=== PATIENT | male | born 1940 | race Caucasian/White ===

== ENCOUNTER 2017-11-22 15:51 | Emergency (ER) | payer MEDICARE, SELFPAY ==
[2017-11-22 15:52] VITALS: BP 127/79; PULSE 63; RESP 16; TEMP 37; O2SAT 97; BMI 26.4
--- NOTE | 2017-11-22 15:55 | RAD_ITS ---
STUDY: X-RAY - LEFT ANKLE REASON FOR EXAM: Male, 77 years old. Pain. Injury. Swelling TECHNIQUE: 3 view(s) of the ankle. COMPARISON: None. FINDINGS: Normal visualized distal tibia and fibula. Normal medial and lateral malleoli. Normal tibiotalar articulation and ankle mortise. Normal visualized talus. Plantar spur of the calcaneus. The visualized subtalar, talonavicular, calcaneocuboid and tarsal articulations are normal. There is no demonstrated fracture. Lateral soft tissue swelling. RAD/Ankle min 3 Views IMPRESSION: No fracture. Soft tissue swelling. Electronically Signed: Nitin Gibbs MD at 16:46 EDT , Service support ,
--- NOTE | 2017-11-22 17:05 | ED.DCSUM_ITS ---
- ER Visit Summary Date of Service: 11/22/17 Chief Complaint: Left ankle pain History of Present Illness: The patient is a 77 M who rolled his left ankle when he was jumping down from a tractor today. He states he can weight-bear on it but has increased pain. He has been using crutches. He denies paresthesias. He did not fall to the ground have any other injury. Physical Examination: Vital signs unremarkable. Patient is sitting in the butt chair. He is in no acute distress. Heart is regular rate and rhythm. Lung sounds are clear. Lower external examination was edema diffusely throughout the left ankle, lateral greater than medial. There is diffuse tenderness. There is no tenderness over the foot itself. There is no tenderness at the proximal fibula or knee. He has strong distal pulses and normal sensation. Test Results: Left ankle x-rays were obtained per nursing protocol. There is no evidence of fracture. Soft tissue swelling is noted. Emergency Department Course and Treatment: Patient declined anything for pain here. He will be placed in a stirrup splint and will continue to use his crutches. He has been seen by Dr. Angeles in the past and will be referred to him for follow-up if not improving. Treatment Plan: [] Disposition: Discharge Impression: Left ankle sprain This note was generated with [employer] dictation software. It may contain incorrect words, spelling, and punctuation that were not noted in review of the chart prior to signing ED Disposition - Plan for ED Patient: Chief Complaint: Lower Extremity Injury Referrals: Tramaine Rodriguez MD [Primary Care Provider] -
--- NOTE | 2017-11-22 17:05 | ED.DEP ---
ED Disposition - Plan for ED Patient: Disposition: Home or Assisted Living Chief Complaint: Lower Extremity Injury Instructions: ED Sprain Ankle W X Ray Referrals: Kory Angeles DO [STAFF PHYSICIAN] - 1 Week if not improving
== END 2017-11-22 18:23 | disposition home or self-care (01) ==
PROVIDERS: Emergency Provider Emergency Medicine; Family Provider Family Medicine; PCP Family Medicine
DX: S93.402A Sprain of unspecified ligament of left ankle, initial encounter (principal); X50.1XXA Overexertion from prolonged static or awkward postures, initial encounter; Y93.39 Activity, other involving climbing, rappelling and jumping off; Y92.9 Unspecified place or not applicable; I10 Essential (primary) hypertension; E78.00 Pure hypercholesterolemia, unspecified; Z87.891 Personal history of nicotine dependence
CPT/HCPCS: 73610; 99282

== ENCOUNTER 2020-02-25 13:55 | Emergency (ER) | payer MEDICARE, SELFPAY ==
[2020-02-25 13:56] VITALS: BP 130/72; PULSE 41; RESP 20; TEMP 36.2; O2SAT 100; BMI 26.0
--- NOTE | 2020-02-25 14:17 | EKG12_ITS ---
Test Reason : ANGELA Blood Pressure : / mmHG Vent. Rate : 069 BPM Atrial Rate : 061 BPM P-R Int : 182 ms QRS Dur : 098 ms QT Int : 454 ms P-R-T Axes : 075 018 -50 degrees QTc Int : 486 ms Sinus rhythm with frequent and consecutive Premature ventricular complexes Nonspecific ST and T wave abnormality Prolonged QT Abnormal ECG Confirmed by VASYL CRUZ, NGHIA ([id number]), electronic news gathering editor LAMBERT DEXTER ([id number]) on 02/27/2020 8:45:46 AM Referred By: DELFIN Confirmed By:NGHIA FALLON MD
--- NOTE | 2020-02-25 14:17 | ED.VIS.GEN ---
History of Present Illness Chief Complaint: General Illness Detail of Chief Complaint: Low heart rate Informant: Patient Onset: Weeks - 2, plus or minus Quality: Low heart rate. No symptoms. Narrative: Patient states he routinely checks his blood pressure, and has done so for a long time. In the last couple weeks he has noticed that the machine is telling him that his heart rate is low. His blood pressure has been fine. He has had no acute symptoms in the last couple weeks. No dizziness, chest pain, shortness of breath even with exertion. No recent illness or injury. He has had no recent medication changes, he takes atorvastatin, lisinopril, baby aspirin and no other medicines. - Past Medical History (1) Hypertension Status: Chronic (2) Hyperlipidemia Status: Chronic (3) Prostate cancer Status: Resolved Past Medical History - Allergies and Home Meds Allergies/Adverse Reactions: Allergies No Known Allergies Allergy (Verified 11/22/17 15:53) Primary Care Physician: Feliz Plunkett MD [STAFF PHYSICIAN] - As soon as possible (call for appt) Tramaine Rodriguez MD [Primary Care Provider] - Smoking Status: Former smoker Review of Systems General: Denies: Chills, Fever, Sweats Eyes: Denies: Visual changes - bilaterally, Diplopia ENT: Denies: Rhinorrhea, Sore throat Cardiovascular: Denies: Chest pain, Palpitations Respiratory: Denies: Dyspnea, Cough, Dyspnea on exertion Gastrointestinal: Denies: Abdominal pain, Nausea, Vomiting, Diarrhea, Melena, Hematochezia Genitourinary: Denies: Dysuria, Hematuria, Frequency Musculoskeletal: Denies: Back pain, Swelling, Extremity Pain Skin: Denies: Rash, Wounds Neurological: Denies: Headache, Weakness, Numbness Physical Exam Vital Signs/Narrative: Vital Signs Temp Pulse Resp BP Pulse Ox 02/25/20 13:56 97.1 F L 41 L 20 H 130/72 H 100 Inital Vital Signs reviewed: Yes General: Well nourished, Well developed, No Acute Distress Head: Normocephalic, Atraumatic Eyes: Perrl, EOMI ENT: Moist mucous membranes, No rhinorrhea Neck: Supple, Nontender, No JVD Cardiovascular: No murmurs, Normal S1, Normal S2, Irregular, Bradycardia Respiratory: No distress, CTA bilaterally, Chest nontender Abdomen: Soft, Nontender, Nondistended, Normal bowel sounds Back: Nontender, Normal Inspection Extremities: Nontender, No edema Skin: Normal color, No rash Neurological: Alert, Oriented x3, Cranial nerves II-XII grossly intact, Normal Strength, Normal Sensation Psychological: Normal affect, Normal Mood Diagnostic/Tx/Re-eval Laboratory Tests 02/25/20 02/25/20 Range/Units 14:15 14:15 WBC 6.6 (4.4-11.0) K/mm3 RBC 4.48 L (4.6-6.2) M/mm3 Hgb 13.7 (13.0-16.5) g/dL Hct 42.4 (40-54) % MCV 94.6 H (80-94) fL MCH 30.6 (27.0-32.0) pg MCHC 32.3 (32-36) g/dL RDW Std Deviation 44.3 H (35.1-43.9) fl RDW Coeff of Trini 12.8 (11.6-14.6) % Plt Count 213 (150-450) K/mm3 MPV 10.2 (6.2-12.0) fl Immature Gran % (Auto) 0.300 (0.0-0.9) % Neut % (Auto) 59.4 (47-70) % Lymph % (Auto) 22.6 (19-41) % Norton % (Auto) 12.1 H (0-10) % Eos % (Auto) 5.0 (0-5) % Baso % (Auto) 0.6 (0-1) % Absolute Neuts (auto) 3.9 (2.0-7.7) X10^3/uL Absolute Lymphs (auto) 1.50 (0.83-4.51) X10^3/uL Nucleated RBC % 0 (0-5) % Sodium 141 (136-145) mmol/L Potassium 4.2 (3.5-5.1) mmol/L Chloride 106 (98-107) mmol/L Carbon Dioxide 29.0 (21.0-32.0) mmol/L Anion Gap 6 (5-15) BUN 23 H (7-18) mg/dL Creatinine 1.46 H (0.70-1.30) mg/dL Estim Creat Clear Calc 42.26 ml/min Est GFR (MDRD) Af Amer 60 (>60) mL/min Est GFR (MDRD) Non-Af 49 L (>60) mL/min BUN/Creatinine Ratio 15.8 (10-20) RATIO Glucose 102 (74-106) mg/dL Calcium 8.7 (8.5-10.1) mg/dL - Rhythm Strip Rhythm Strip: Sinus Rhythm Rate: 65 - Pulse is for the most part 30-40 and at times 60 Ectopy: PVC(s) - EKG Initial EKG Interpretation: Sinus Rhythm - With ventricular bigeminy for heart, otherwise unremarkable, No Acute Injury Pattern - Medical Decision Making Reviewed several strips, patient has an atrial rate in the 60s, his pulse is often in the 30s, he has PACs, PVCs that are multifocal, however I cannot find anything that represents Mobitz 2 or complete heart block. Discussed with Dr. Plunkett with cardiology, since the patient is asymptomatic he would recommend discharging him home with a 48-hour Holter monitor to go to him for review and close outpatient follow-up. Patient is comfortable with that plan. ED Disposition - Plan for ED Patient: Disposition: Home or Assisted Living Diagnosis: Bradycardia Instructions: ED Bradycardia, ED Holter Monitor Referrals: Tramaine Rodriguez MD [Primary Care Provider] - Feliz Plunkett MD [STAFF PHYSICIAN] - 5-7 Days (call for appt)
[2020-02-25 14:20] VITALS: BP 135/89; PULSE 67; RESP 20; O2SAT 98
[2020-02-25 14:25] LABS: Absolute Neutrophil Count 3.9 X10^3/uL (2.0-7.7); Basophil# 0.04 X10^3/uL; Basophil% 0.6 % (0-1); Eosinophil# 0.33 X10^3/uL; Hematocrit 42.4 % (40-54); Hemoglobin 13.7 g/dL (13.0-16.5); Lymphocyte % 22.6 % (19-41); Mean Corp Hgb Conc 32.3 g/dL (32-36); Mean Corpuscular Hgb 30.6 pg (27.0-32.0); Mean Corpuscular Volume 94.6 fL (80-94); Mean Platelet Vol. 10.2 fl (6.2-12.0); Monocyte% 12.1 % (0-10); NRBC Flagged by Analyzer 0 % (0-5); Neutrophil # 3.94 X10^3/uL (2.7-7.7); Neutrophil % 59.4 % (47-70); Platelet Count 213 K/mm3 (150-450); RBC Distribution Width CV 12.8 % (11.6-14.6); RBC Distribution Width SD 44.3 fl (35.1-43.9); Red Blood Count 4.48 M/mm3 (4.6-6.2); White Blood Count 6.6 K/mm3 (4.4-11.0)
[2020-02-25 14:40] LABS: Anion Gap 6 (5-15); BUN 23 mg/dL (7-18); BUN/Creat Ratio 15.8 RATIO (10-20); Calcium,Total 8.7 mg/dL (8.5-10.1); Chloride 106 mmol/L (98-107); Creatinine, Serum 1.46 mg/dL (0.70-1.30); EST Glomerular Filtration Rate 49 mL/min (>60); Est Glom Filt Rate - Afr Amer 60 mL/min (>60); Estimated Creatinine Clearance 42.26 ml/min; Glucose 102 mg/dL (74-106); Potassium 4.2 mmol/L (3.5-5.1); Sodium Level 141 mmol/L (136-145)
[2020-02-25 15:00] VITALS: BP 124/71; PULSE 55; RESP 20; O2SAT 95
[2020-02-25 16:23] VITALS: BP 124/77; PULSE 55; RESP 19; O2SAT 96
[2020-02-25 16:42] VITALS: BP 125/82; PULSE 62; RESP 16; O2SAT 99
== END 2020-02-25 17:31 | disposition home or self-care (01) ==
PROVIDERS: Emergency Provider Emergency Medicine; PCP Family Medicine
DX: R00.1 Bradycardia, unspecified (principal); E78.5 Hyperlipidemia, unspecified; I10 Essential (primary) hypertension
CPT/HCPCS: 80048; 85025; 93005; 93225; 99284; A4216

== ENCOUNTER → 2020-02-25 16:43 | Outpatient (CLI) | payer MEDICARE, SELFPAY ==
[2020-02-25 13:56] VITALS: BMI 26.0
== END ==
PROVIDERS: PCP Family Medicine; Visit Provider Emergency Medicine
DX: Z00.00 Encounter for general adult medical examination without abnormal findings (principal)

== ENCOUNTER → 2020-03-05 11:47 | Outpatient (CLI) | payer MEDICARE, SELFPAY ==
[2020-03-05 10:59] VITALS: BMI 26.0
[2020-03-05 14:19] LABS: Thyroid Stim Hormone (TSH) 0.56 uIU/mL (0.358-3.74)
== END ==
PROVIDERS: PCP Family Medicine; Visit Provider Internal Medicine Cardiovascular Disease
DX: R53.83 Other fatigue (principal)
CPT/HCPCS: 36415; 84443

== ENCOUNTER → 2020-03-12 06:59 | Outpatient (CLI) | payer MEDICARE, SELFPAY ==
[2020-03-05 10:59] VITALS: BMI 26.0
--- NOTE | 2020-03-12 07:05 | ECHOD_ITS ---
Reason For Study: ARRHYTHMIA Procedure This was a 2D Doppler, Color Flow transthoracic echocardiogram. Exam performed in department. Left Ventricle Normal LV size. The estimated ejection fraction is 30 %. Stage 1 diastolic dysfunction. There is mild to moderate global hypokinesis of the left ventricle. Right Ventricle Normal RV size. Normal systolic function. Atria Normal left atrium. Normal right atrium. Mitral Valve Normal mitral valve. Mild (1+) eccentric mitral valve insufficiency. Tricuspid Valve Normal tricuspid valve. Mild (1+) tricuspid valve insufficiency. Pulmonary artery systolic pressure is 38 mmHg. Aortic Valve Trisinus/trileaflet aortic valve. Mild (1+) eccentric aortic valve insufficiency. Pulmonic Valve Normal pulmonic valve. Great Vessels Normal aortic root. The pulmonary artery is normal size. Normal inferior vena cava. Pericardium/Pleural No pericardial effusion. MMode/2D Measurements & Calculations LVIDd: 6.2 cm IVSd: 0.98 cm Ao root diam: 3.4 cm LVIDs: 4.7 cm LVPWd: 0.97 cm RVDd: 3.8 cm FS: 24.1 % LAV(MOD-bp): 71.0 ml LVAd ap4: 42.1 cm2 SV(MOD-sp4): 66.7 ml LAV(MOD-bp) Indexed: 34.7 ml/m2 EDV(MOD-sp4): 160.6 ml LAV(MOD-sp2): 73.8 ml EDV(sp4-el): 167.7 ml LAV(MOD-sp4): 52.1 ml LVAs ap4: 30.4 cm2 ESV(MOD-sp4): 93.9 ml ESV(sp4-el): 96.1 ml EF(MOD-sp4): 41.5 % EF(sp4-el): 42.7 % SV(sp4-el): 71.6 ml LA A4 area: 17.8 cm2 LA dimension(2D): 4.6 cm RA A4 area: 16.1 cm2 Time Measurements MV dec time: 0.28 sec Doppler Measurements & Calculations MV E max peewee: 38.3 cm/sec Lat Peak E' Peewee: 3.9 cm/sec Med Peak E' Peewee: 3.6 cm/sec MV A max peewee: 69.6 cm/sec E/E' lat: 9.7 E/E' med: 10.6 MV E/A: 0.55 Ao V2 max: 126.5 cm/sec LV V1 max: 89.2 cm/sec PA V2 max: 105.7 cm/sec Ao max P.5 mmHg LV V1 max P.2 mmHg PI end-d peewee: 104.3 cm/sec TR max peewee: 288.8 cm/sec TR max P.4 mmHg Interpretation Summary The estimated ejection fraction is 30 %. There is mild to moderate global hypokinesis of the left ventricle. Normal LV size. Mild (1+) eccentric mitral valve insufficiency. Mild (1+) eccentric aortic valve insufficiency. Stage 1 diastolic dysfunction. Ordering Physician: Feliz Plunkett Referring Physician: DAVID JEAN BAPTISTE Performed By: Tayla Brown RDCS
--- NOTE | 2020-03-12 16:47 | STRESSREP ---
Stress Test Report Exercise myocardial perfusion stress test. 79-year-old male with a history of premature ventricular complexes. Stress protocol: Resting EKG demonstrates normal sinus rhythm with a rate of [address] depression noted in leads II, III and aVF V5 and V6. Occasional premature ventricular complexes noted. The patient exercised according to the regular Geovani protocol for a total duration of 6 minutes and 51 seconds. The maximum heart rate attained was 129 bpm which was 92% of max impacted heart rate the maximum workload was 8.3 metabolic equivalents. The patient maintained sinus rhythm throughout the recording. Frequent premature ventricular complexes were noted no runs of ventricular tachyarrhythmia were present. There were nonspecific EKG changes noted we did not meet the criteria for ischemia. The resting blood pressure was 132/84 with a peak blood pressure 172/70 mmHg. The test was terminated due to dyspnea present. Myocardial perfusion protocol. 11.4 mCi of technetium 99m sestamibi was injected at rest. The patient exercised according to regular Geovani protocol for 6 minutes and 51 seconds. At peak exercise 32.9 mCi of technetium 99m sestamibi was injected at rest. Stress and rest images were reconstructed and compared in the short axis vertical long horizontal long axis. Gated images were not obtained. Perfusion SPECT analysis: Review of the stress images demonstrate normal uptake of tracer noted in the anterior wall and septum. There is reduction of perfusion noted in the inferior wall. The resting images demonstrate mild improvement suggesting mild inferior ischemia. Conclusion: Exercise myocardial perfusion stress test with evidence of mid inferior ischemia at a moderate workload. Premature ventricular complexes noted.
== END ==
PROVIDERS: PCP Family Medicine; Referring Provider Internal Medicine Cardiovascular Disease; Visit Provider Internal Medicine Cardiovascular Disease
DX: R07.89 Other chest pain (principal); I49.49 Other premature depolarization
CPT/HCPCS: 78452; 93017; 93306; A9500; A4216

== ENCOUNTER 2020-03-19 06:42 | Day surgery (SDC) | payer MEDICARE, SELFPAY ==
[2020-03-05 10:59] VITALS: BMI 26.0
--- NOTE | 2020-03-17 10:10 | RAD_ITS ---
STUDY: X-RAY CHEST REASON FOR EXAM: Male, 79 years old. CHEST TIGHTNESS TECHNIQUE: PA and lateral views of the chest. COMPARISON: None. FINDINGS: There are areas of hyperinflation. Mild interstitial prominence. There is no focal parenchymal abnormality. There is no demonstrated pleural abnormality. Normal size heart. Normal mediastinum and dax. Normal visualized pulmonary arteries. Normal visualized aortic arch and descending thoracic aorta. There are diffuse degenerative changes of the visualized thoracic spine. Normal visualized ribs, clavicles, and shoulders. There is no demonstrated abnormality of the visualized soft tissue structures of the upper abdomen. RAD/Chest PA and Lateral IMPRESSION: Component of COPD suspected. No pulmonary edema, congestive heart failure or confluent pneumonia. Electronically Signed: Kamryn Donaldson MD at 6:21 EST , Service support ,
[2020-03-18 10:42] VITALS: BMI 26.0
--- NOTE | 2020-03-19 07:00 | HP_ITS ---
HPI HPI History of Present Illness Details: Pleasant 79-year-old man with no previous cardiac history who is being rather active but with a history of hypertension hyperlipidemia and obstructive sleep apnea. He says that his noticed 1 day that he looked rather ashen when he had come from outside when her been working out. He is always had a low pulse rate according to him. He was sent to the urgent care and was noted to have frequent premature complexes and he was asked to have this worked up. He has had no dizziness or diaphoresis no near syncope or syncope he has been compliant with all his medications. He did have a 48-hour Holter monitor which demonstrated an average heart rate of 63 bpm with a minimum of 38 bpm and a maximum 119 bpm. Frequent premature ventricular complexes were noted which were multifocal. This comprised 27% of the total QRS burden. He did have blood work done with normal electrolytes. His physical exam today demonstrates clear lung mcpherson regular rate and rhythm and no pedal edema his electrocardiogram from February 24 demonstrated sinus rhythm with a rate of 69 bpm with frequent ventricular ectopy in the pattern of bigeminy noted. No acute changes were present. Intake Vital Signs 03/05/20 Height 5 ft 11 in 03/05/20 Weight: 187 lb 03/05/20 BMI 26.0 03/05/20 BP 118/58 L 03/05/20 Respiration 16 03/05/20 Pulse 62 03/05/20 Pulse Oximetry (%) 98 Intake Visit Reasons: ER 02/24 for bradycardia Allergies No Known Allergies Allergy (Verified 03/05/20 08:49) Medications Aspirin [Aspirin EC] 81 mg PO DAILY 02/25/20 [History Confirmed 03/05/20] Atorvastatin Calcium [Lipitor] 10 mg PO DAILY 02/25/20 [History Confirmed 03/05/20] Lisinopril [Zestril] 40 mg PO DAILY 02/25/20 [History Confirmed 03/05/20] amiodarone 100 mg tablet 100 mg PO DAILY #90 tab 03/05/20 [Rx Confirmed 03/05/20] [facility] Medical History Essential hypertension (Chronic) Hyperlipidemia (Chronic) GERD (gastroesophageal reflux disease) (Chronic) Obstructive sleep apnea (Chronic) Prostate cancer (Resolved) Surgical History History of shoulder surgery (Resolved 2012) Family History Mother Hypertension Other Heart disease Social History (Updated 03/05/20 @ 11:[address] Feliz Plunkett MD) Smoking Status: Former smoker ROS Const Const: Positive for fatigue; negative for weakness, headache(s), frequent falls, difficulty sleeping or excessive sweating Eyes Eyes: Negative for loss of peripheral vision, transient loss of vision, blurry vision, double vision or tunnel vision ENT ENT: Negative for headache(s), dizziness, Nosebleed/epistaxis or balance problems Cardio Chest Pain: Yes (c/o left chest pressure at rest) Palpitations: No Edema: None Muscle aches with walking: None Additional Details: says after exerting himself he looks tired and [place] Resp Respiratory: Negative for SOB with activity, SOB at rest, SOB orthopnea\SOB lying down, Cough or paroxysmal nocturnal dyspnea Additional Details: uses cpap GI GI: Negative nausea, vomiting, heartburn or black,tarry stools : Negative for hematuria Musc Musc: Negative for muscle aches/ myalgia, muscle weakness, joint pain or balance problems Skin Skin: Negative non-healing lesions, rash or unusual bruising Neuro Neuro: Negative for dizziness, lightheadedness, near syncope, syncope, orthostatic symptoms, frequent falls, headache(s), weakness, blurry vision, double vision or lack of coordination Oscar Hematologic/Lymphatic: Negative for easy bleeding or easy bruising Endo Endo: Positive for fatigue; negative for excessive sweating or increased thirst/drinking Psych Psych: Negative for anxiety or depression Allergy Allergy/Immunology: Negative for hives, Negative for rash Cardiology Exam Const Appearance: cooperative, healthy appearing, no acute distress, well developed and well groomed Nutritional Appearance: average body habitus and well nourished Orientation: alert, awake and oriented x3 Head Head: normal to inspection, normocephalic and atraumatic Ears: hearing grossly normal bilaterally and external ears normal Nose: external nose normal, nares normal, nasal mucous membranes and turbinates normal, septum normal, no nasal discharge Face and Sinus: face symmetric Mouth: oral mucosae normal, tongue normal, oropharynx normal and moist mucous membranes Teeth and gingiva: dentition normal Throat: posterior oropharynx normal, tonsils normal and uvula midline Eyes General: appearance normal, both eyes and all related structures Eyelids: eyelids normal Conjunctivae: conjunctivae normal Pupils: PERRL, normal by confrontation and accommodation normal EOM: EOM intact bilaterally Neck Neck: normal visual inspection, trachea midline and no JVD JVD: +5 Carotids: normal carotid upstroke and bounding pulses Chest Chest inspection: normal inspection of the chest, symmetric chest movement and normal respiratory effort Auscultation: Bilateral: Clear to Auscultation Cardio Palpation: normal PMI Rate: regular rate Rhythm: regular rhythm Heart sounds: S1 normal, S2 normal and normal, physiologic split S2; negative rub, gallop or murmur GI GI: normal to inspection, soft, no hepatosplenomegaly and bowel sounds present Neuro General: alert, awake, oriented x3, gait normal, moves all extremities and no focal sensory deficit Skin Skin: no rashes or lesions noted Extremities Pulses: Normal: Right Femoral Pulse, Left Femoral Pulse, Right Dorsalis Pedis Pulse, Left Dorsalis Pedis Pulse, Right Posterior Tibial Pulse, Left Posterior Tibial Pulse, Right Radial Pulse, Left Radial Pulse Lower Extremity Edema: None: Bilateral Musculoskel Musculoskeletal: No joint tenderness Psych Psychological: normal affect Assessment & Plan 1. 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 The etiology of the above is not clear like us to obtain a thyroid test and also an echocardiogram. I would empirically like to put him on low-dose of amiodarone 100 mg a day and repeat his Holter monitor in approximately 6 weeks to see whether there is been any suppression of the above. Depending on those findings further recommendations will be made. Ischemia would also be excluded as well as his left ventricular function assessed. Depending on those results further recommendations will be made. Orders Orders: Cardiac Holter Monitor, Set-Up 6 Weeks Cardiac Holter Monitor/Day 6 Weeks Nuclear Stress Test - Treadmil Today 2. Essential hypertension I10 Plan His blood pressure appears to be under good control on the current medical therapy and I would not recommend that we make any changes. He will remain on the lisinopril at the same dose. 3. Chest pressure R07.89 Plan He has had some chest pressure occasionally not necessarily related to activity. I would like us to evaluate the above with stress testing. I have explained the above to him and his they understand and agree to proceed. Thank you for allowing me to participate in the care of your patient. Please don't hesitate to call if any issues arise. 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
--- NOTE | 2020-03-19 08:45 | CL.D_ITS ---
Patient Name: ANTHONY HAYDEN Study Date: 03/19/2020 Performing: Feliz Plunkett MD Ht: 70.86 inches 180 cm : 1940 Wt: 187.39 lbs 85 kg Age: 79 Gender: male BSA: 2.05 PROCEDURE(S) PERFORMED [id number] CLINICAL PROFILE AND INDICATIONS Indications: Cardiomyopathy, Cardiac Arrythmia, Dilated Idiopathic Cardiomyopathy Heart Failure: None Stress/Imaging Date: 03/12/2020Stress Test with SPECT MPI: Positive Intermediate Risk CAD Presentations: No Sxs, no angina. CONCLUSIONS Non obstructive coronary arteries Cardiomyopathy: Dilated idiopathic RECOMMENDATIONS Medical therapy DESCRIPTION OF PROCEDURE The patient arrived to the procedure lab. The risks and benefits of the procedure as well as a full d escription of our services here and current unavailability of surgical backup were fully explained to the patient and/or their significant other prior to the catheterization. The Timeout was completed, verifying the correct patient and procedure. The patient's procedural site was prepped and draped in the usual fashion. Local anesthetic was given subcutaneously to right radial region with Lidocaine 2% . Using a modified Seldinger technique, arterial access was obtained via the right radial artery, a 6 Fr sheath was inserted. Right Coronary Artery selective angiography was then performed in multiple v iews using a 5 Fr. 3.5 Larry catheter. Left Coronary Artery selective angiography was performed in mu ltiple views using a 5 Fr. JL3.5 catheter.The arterial sheath was pulled and a TR Band was applied fo r hemostasis CORONARY ANGIOGRAPHY DOMINANCE: Right Dominant LEFT HEART ASSESSMENT Left Ventricular Ejection Fraction: by Echo 30 % Global Hypokinesis - Moderate LEFT MAIN: Angiographically normal LEFT ANTERIOR DESCENDING ARTERY: Mild luminal irregularities less than 30% CIRCUMFLEX ARTERY: No significant disease noted RIGHT CORONARY ARTERY: Mild luminal irregularities COMPLICATIONS No Complications PROCEDURE MEDICATIONS Versed 1 mg IV Fentanyl 50 mcg IV Versed 1 mg IV Oxygen: 2 L/min via nasal cannula Heparin given IA 03/19/2020 08:09:17 SUMMARY OF HEMODYNAMIC DATA Time AIR REST ECG 07:01:17 AO 106/48 (66) SA 08:11:13 AO 113/58 (76) 08:13:37 Signed By Feliz Plunkett MD On 03/19/2020 08:44:29 Feliz Plunkett MD
== END 2020-03-19 10:30 | disposition home or self-care (01) ==
LOC: CLSP 06:43
PROVIDERS: PCP Family Medicine; Referring Provider Internal Medicine Cardiovascular Disease; Visit Provider Internal Medicine Cardiovascular Disease
DX: I42.0 Dilated cardiomyopathy (principal); I10 Essential (primary) hypertension; I49.3 Ventricular premature depolarization; G47.33 Obstructive sleep apnea (adult) (pediatric); E78.5 Hyperlipidemia, unspecified; K21.9 Gastro-esophageal reflux disease without esophagitis; Z79.02 Long term (current) use of antithrombotics/antiplatelets; Z79.82 Long term (current) use of aspirin; Z79.899 Other long term (current) drug therapy; Z87.891 Personal history of nicotine dependence; R07.89 Other chest pain
CPT/HCPCS: 71046; 93454; 99152; 99153; J7040; C1769; C1894; Q9967

== ENCOUNTER → 2020-05-12 09:29 | Outpatient (CLI) | payer MEDICARE, SELFPAY ==
[2020-05-07 11:57] VITALS: BMI 26.4
== END ==
PROVIDERS: PCP Family Medicine; Referring Provider Internal Medicine Cardiovascular Disease; Visit Provider Internal Medicine Cardiovascular Disease
DX: I49.49 Other premature depolarization (principal)
CPT/HCPCS: 93225; 93226

== ENCOUNTER 2021-10-29 21:18 | Emergency (ER) | payer MEDICARE, SELFPAY ==
[2021-10-29 21:19] VITALS: BP 130/95; PULSE 71; RESP 16; TEMP 37.5; O2SAT 99; BMI 26.4
--- NOTE | 2021-10-29 22:00 | RAD_ITS ---
INDICATION: cough EXAMINATION/TECHNIQUE: X-RAY - XR Chest 1 View COMPARISON: None. FINDINGS: LINES/DEVICES: None. LUNGS: Symmetric normal lung volumes. No airspace opacity or abnormal interstitial pattern. No nodule or mass. No pleural effusion or pneumothorax. MEDIASTINUM AND CARDIOVASCULAR STRUCTURES: Normal size and contour of the cardiomediastinal silhouette. No evidence of pulmonary vascular congestion. BONES AND SOFT TISSUES: No fracture or focal osseous lesion. RAD/Chest 1 View (Portable) IMPRESSION: 1. No radiographic evidence of acute cardiopulmonary disease. Electronically Signed: Kory Cisse DO at 22:41 EDT ,
--- NOTE | 2021-10-29 22:04 | EX.ED.DYSGE1 ---
HPI History of Present Illness Chief Complaint: General Illness Informant: patient and family Onset/Context/Timing Onset: Today Context: Gradual Onset Timing: Continuous Current Severity: Mild Maximum Severity: Mild Narrative Narrative: 80-year-old male tested positive for COVID on Tuesday. He started having a fever of 101.3 today. Nonproductive cough. No shortness of breath. He denies any nausea, vomiting or diarrhea. No hemoptysis. Is a past medical history of abnormal cardiac rhythm and renal insufficiency. No underlying lung disease. Prior similar symptoms: Yes Recent Illness/Hospitalization: No [facility], [facility] Medical History (Updated 10/29/21 @ 23:[address] Jose Hogue MD) Essential hypertension GERD (gastroesophageal reflux disease) Hyperlipidemia Multiple premature ventricular complexes Non-ischemic cardiomyopathy Nonsustained paroxysmal ventricular tachycardia Obstructive sleep apnea Prostate cancer Sinus bradycardia Home Medications aspirin 81 mg tablet,delayed release 81 mg PO DAILY 02/25/20 [History Last Taken 03/19/20] atorvastatin 10 mg tablet 10 mg PO DAILY 02/25/20 [History Last Taken Unknown] amiodarone 100 mg tablet 100 mg PO DAILY #90 tabs 05/12/20 [Rx Last Taken Unknown] carvedilol 3.125 mg tablet (Coreg) 3.125 mg PO BID #180 tabs 05/12/20 [Rx Last Taken Unknown] lisinopril 40 mg tablet 40 mg PO DAILY #90 tabs 05/12/20 [Rx Last Taken Unknown] Allergy/AdvReac Type Severity Reaction Status Date / Time No Known Allergies Allergy Verified 10/29/21 21:21 Family History Mother Hypertension Other Heart disease Surgical History History of left heart catheterization (03/19/20) History of shoulder surgery (2012) Social History Smoking Status: Former smoker ROS ROS ED ROS Narrative Cough and fever. Review of Systems ROS Unobtainable: Denies due to encephalopathy Constitutional Constitutional ED: Reports fever(s); Denies chills Eyes Eyes: Denies blurry vision ENT ENT ED: Denies ear pain Cardiovascular Cardiovascular: Denies chest pain Respiratory/Chest Respiratory/Chest: Reports cough; Denies dyspnea Gastrointestinal Gastrointestinal: Denies abdominal pain, constipation, diarrhea, melena, nausea or vomiting Genitourinary Genitourinary ED: Denies dysuria Musculoskeletal Musculoskeletal: Denies arthralgias Integumentary Denies abscess Neurologic Neurologic: Denies headache(s) Psychiatric Psychiatric: Denies anxiety Endocrine Endocrinology: Denies cold intolerance Hematologic/Lymphatic Hematologic/Lymphatic: Reports none; Denies systems reviewed and no addt'l complaints, except as documented Allergic/Immunologic Allergic/Immunologic ED: Denies mouth swelling EXAM Physical Exam Narrative Exam Narrative: 80-year-old male no acute distress vital signs stable afebrile. Pulse ox 99% on room air no signs hypoxia. He does not look septic or toxic. His temperature is nine 9.5 he did take Tylenol prior to arrival. H EENT exam unremarkable. Moist remembers. Neck nontender no JVD. No lymphadenopathy. Lungs clear to auscultation bilaterally. Heart regular rhythm rate about 70 no murmur. Abdomen soft nontender. Patient moving all 4 extremities. Calves are nontender without edema or cords. Const Vital Signs: 10/29/21 21:19 10/29/21 21:25 Temperature 99.5 F H Temperature Source Temporal Pulse Rate 71 Respiratory Rate 16 Respiratory Effort Normal Blood Pressure 130/95 H Blood Pressure Mean 106 Pulse Ox 99 Oxygen Delivery Method Room Air Positive well nourished and well developed; Negative for obese, cachectic, contractures or unkempt General Appearance ED: well developed; Negative for unkempt, cachectic or contractures Nutritional Appearance: Negative for cachectic or obese HEENT Reports moist mucous membranes; Denies dry mucous membranes Mouth ED: No dry mucous membranes Mouth: No dry mucous membranes Eyes PERRL and EOMs intact bilaterally General Eye ED: Negative for pale conjunctiva or scleral icterus Neck no lymphadenopathy, supple and no JVD General: Negative for tenderness Lymph Lymphatic: Negative for other Resp normal respiratory effort and clear to auscultation bilaterally Effort and Inspection: Negative for retractions Auscultation: Negative for rales, rhonchi or wheezes Cardio regular rate, regular rhythm, S1 normal heart sound, S2 normal heart sound and no murmurs Palpation: Negative for palpable S3 Rate: Negative for bradycardia Rhythm: Negative for abnormal rhythm GI normal to inspection, nondistended, normoactive bowel sounds, non-tender, non-distended and no masses Inspection: Negative for abdominal distention Auscultation: normoactive bowel sounds Palpation: soft; Negative for tender, guarding or splenomegaly Back/Spine no CVA tenderness General Back: Negative for CVA tenderness Cervical Spine: Negative for cervical spine tenderness Extremity normal to inspection General Extremety ED: Negative for edema or tenderness General Extremity: Negative for edema Neuro oriented x3 Sensorium / Orientation: alert; Negative for orientation impaired, lethargic or stuporous Motor Exam: strength 5/5 throughout; Negative for general weakness or strength abnormal Psych mental status grossly normal Appearance: Negative for unkempt Attitude: No agitated Mood & Affect: Negative for depressed Skin no rashes or lesions noted and no wounds General Skin Exam: elasticity normal Lesions: No lesion noted Rashes: No rashes noted Trauma: Negative for abrasion Wounds: Negative for wounds noted MDM MDM MDM Narrative Medical decision making narrative: 80-year-old male with a cough and fever today. has COVID. He clinically looks well. He has had both of his Moderna vaccines and one of the boosters. He has no shortness of breath. Chest x-ray and COVID test to be obtained. Exam is benign. Repeat exam patient doing well. He is in no distress. We went over his test results. He is cuttle being discharged home. I do not think he needs any medications at this time. Lab Data Attestation: I reviewed the patient's lab results. Lab results narrative: Rapid COVID test positive. Chest x-ray chronic changes no acute process. Radiography Chest X-Ray - ED: 1 View, Read by ED Physician, Read by Radiologist, Heart, Lungs, Mediastinum, Bony Structures, No Acute Disease and Chronic Changes Diagnostic Testing: Clinical Impression(s) from Imaging Studies Chest X-Ray 10/29/21 22:00 IMPRESSION: 1. No radiographic evidence of acute cardiopulmonary disease. Electronically Signed: Kory Cisse, at 22:41 EDT , Chest x-ray, portable, single view shows no acute process. Normal cardiac silhouette mediastinum. Interpreted both by myself and the radiologist. I did go over the x-ray with patient and his granddaughter at bedside. Discharge Plan Triage Chief Complaint: General Illness ED Provider: Jose Hogue Dx/Rx/DC Orders Clinical Impression: COVID-19 Instructions: Human Coronaviruses Prescriptions: No Action atorvastatin 10 MG tablet 10 mg PO DAILY aspirin 81 MG tablet,delayed release (DR/EC) 81 mg PO DAILY amiodarone 100 mg tablet 100 mg PO DAILY Qty: 90 3RF carvedilol [Coreg] 3.125 mg tablet 3.125 mg PO BID Qty: 180 3RF Rx Instructions: must administer with a meal/food lisinopril 40 mg tablet 40 mg PO DAILY Qty: 90 3RF Primary Care Provider: Tramaine Rodriguez Referrals: Tramaine Rodriguez MD [Primary Care Provider] - As Needed Activity Restrictions/Additional Instructions: Plenty of fluids and rest. Tylenol for fever. Follow-up with your doctor if not improving or return emergency department if feeling a lot worse. Disposition Disposition: Home, Self Care
[2021-10-29 23:35] VITALS: BP 152/110; PULSE 65; RESP 16; O2SAT 95
== END 2021-10-29 23:36 | disposition home or self-care (01) ==
PROVIDERS: Emergency Provider Emergency Medicine; PCP Family Medicine; Visit Provider Emergency Medicine
DX: U07.1 COVID-19 (principal); G47.33 Obstructive sleep apnea (adult) (pediatric); Z87.891 Personal history of nicotine dependence
CPT/HCPCS: 71045; 87811; 99282

== ENCOUNTER → 2025-02-28 | Outpatient (CLI) | payer MEDICARE, SELFPAY | END | disposition home or self-care (01) | PROVIDERS: PCP Student in an Organized Health Care Education/Training Program | DX: I49.3 Ventricular premature depolarization (principal) | CPT/HCPCS: 93225; 93226 ==